=== PATIENT | female | born 1940 | race Caucasian/White ===

== ENCOUNTER → 2019-06-14 09:52 | Outpatient (CLI) | payer MEDICARE ==
[2013-05-23 07:30] VITALS: BMI 38.8
[~2019-06-14 09:52] MED LIST: COREG12.5 MG PO; MAXZIDE-25 MG T1 TAB PO; POTASSIUM99 M1 PO
== END | disposition home or self-care (01) ==
LOC: D.HCCECHO 09:52 → D.HCCARDIO 10:30
PROVIDERS: ATTEND Internal Medicine Cardiovascular Disease
DX: I10 Essential (primary) hypertension (principal)